=== PATIENT | male | born 1965 | race Caucasian/White ===

== ENCOUNTER 2022-09-11 13:28 | Day surgery (SDC) | payer BC ==
[~2022-09-11] VITALS: Ht 185.4 cm; Wt 110.1 kg
[~2022-09-11 13:28] MED LIST: ATOR1TAB21 PO; CARV25TA PO; DIGO0.123 PO; DILT120C78 PO; ELIQ5TAB PO; ENTR1TAB7 PO; JARD1TAB PO; METF10004 PO; NS 1,000 ML IV ONE; SITA50TAB PO; TORS100T PO
[2022-09-11] MEDS ORDERED: propofoL 200 MG/20 ML VIAL As Ordered ONE ×2 (14:45→15:16)
[2022-09-11] MEDS ORDERED: LIDOCAINE 2% 100MG/5ML SDV (FOR ANES.) As Ordered ONE (14:45)
[2022-09-11] MEDS ORDERED: fentaNYL 100 MCG/2 ML INJECTION As Ordered ONE (14:46)
[2022-09-11 15:50] VITALS: BP 108/65
== END 2022-09-11 16:10 | disposition home or self-care (01) ==
LOC: M OPP 13:28
PROVIDERS: ATTEND Internal Medicine Gastroenterology
DX: Z12.11 Encounter for screening for malignant neoplasm of colon (principal); K64.0 First degree hemorrhoids; K22.89 Other specified disease of esophagus; K31.89 Other diseases of stomach and duodenum; Z79.01 Long term (current) use of anticoagulants; Z79.02 Long term (current) use of antithrombotics/antiplatelets; Z79.84 Long term (current) use of oral hypoglycemic drugs; Z79.899 Other long term (current) drug therapy
CPT/HCPCS: 43239; 45378; 88305; J3010

== ENCOUNTER → 2024-07-29 | Outpatient (CLI) | payer BC ==
[~2024-07-29] MED LIST changes: -NS 1,000 ML IV ONE
[2024-07-29 12:10] LABS: ALBUMIN 3.6 G/DL (3.2-5.2); ALKALINE PHOSPHATASE 99 U/L (40-129); ALT/SGPT 11 U/L (7.0-40); AST/SGOT < 8 U/L (<34); BILIRUBIN,TOTAL < 0.2 MG/DL (0.3-1.2); BLOOD UREA NITROGEN 61 MG/DL (9-23); CARBON DIOXIDE LEVEL 30 MMOL/L (20-31); CHLORIDE LEVEL 99 MMOL/L (98-107); GLOMERULAR FILTRATION RATE 19.2 (>56); GLUCOSE, FASTING 269 MG/DL (60-100); POTASSIUM SERUM 4.4 MMOL/L (3.5-5.1); SODIUM LEVEL 135 MMOL/L (136-145); TOTAL PROTEIN 7.7 G/DL (5.7-8.2)
== END ==
LOC: M LAB 11:07
PROVIDERS: ATTEND Nurse Practitioner Acute Care
DX: I42.0 Dilated cardiomyopathy (principal)

== ENCOUNTER → 2024-11-17 | Outpatient (REF) | payer BC | LOC: M SMT 12:59 | PROVIDERS: ATTEND Urology | DX: R33.9 Retention of urine, unspecified (principal) ==

== ENCOUNTER 2024-11-27 12:49 | Day surgery (SDC) | payer BC ==
[~2024-11-27] VITALS: Ht 185.4 cm; Wt 128.5 kg
[2024-11-27] MEDS ORDERED: LR 1,000 ML IV SCH (12:55)
[2024-11-27] MEDS ORDERED: MIDAZOLAM INJ 2 MG/2 ML VIAL As Ordered ONE (13:16)
[2024-11-27] MEDS ORDERED: LIDOCAINE 2% 100 MG/5 ML SDV (FOR ANES.) As Ordered ONE (13:16)
[2024-11-27] MEDS ORDERED: ONDANSETRON 4MG 2ML VIAL As Ordered ONE (13:17)
[2024-11-27] MEDS ORDERED: KETOROLAC 30 MG/ML 1 ML VIAL As Ordered ONE (13:18)
[2024-11-27] MEDS ORDERED: dexAMETHasone 4 MG/ML 1 ML VIAL As Ordered ONE (13:18)
[2024-11-27] MEDS: CIPROFLOXACIN 400 MG in IV 1 EA IV ONE (13:50)
[2024-11-27] MEDS ORDERED: ACETAMINOPHEN 1000MG/100ML IV BAG As Ordered ONE (14:18)
[2024-11-27] MEDS ORDERED: HYDROmorphone HCL 2 MG/ML 1 ML VIAL As Ordered ONE (14:35)
[2024-11-27] MEDS ORDERED: ONDANSETRON 4MG 2ML VIAL IV PRN (15:20)
[2024-11-27] MEDS ORDERED: PYRI1TAB5 PO (15:30)
[2024-11-27] MEDS ORDERED: OXYB5TAB14 PO (15:30)
[2024-11-27] MEDS ORDERED: CIPR-249 PO (15:30)
[2024-11-27 16:45] VITALS: BP 135/74; TEMP 97; O2SAT 98
== END 2024-11-27 17:24 | disposition home or self-care (01) ==
LOC: M SDC 12:49
PROVIDERS: ATTEND Urology
DX: N40.1 Benign prostatic hyperplasia with lower urinary tract symptoms (principal); R33.8 Other retention of urine; E11.9 Type 2 diabetes mellitus without complications; I10 Essential (primary) hypertension; I48.91 Unspecified atrial fibrillation; E78.00 Pure hypercholesterolemia, unspecified; K76.0 Fatty (change of) liver, not elsewhere classified; G47.30 Sleep apnea, unspecified; Z79.899 Other long term (current) drug therapy; Z79.01 Long term (current) use of anticoagulants; Z95.0 Presence of cardiac pacemaker; Z79.84 Long term (current) use of oral hypoglycemic drugs
CPT/HCPCS: 52601; 88305; J0131; J0744; J1100; J1171; J1885; J2250; J2405; J3010

== ENCOUNTER → 2025-01-09 | Outpatient (REF) | payer BC ==
[~2025-01-09] MED LIST changes: +CIPR-249 PO; +OXYB5TAB14 PO; +PYRI1TAB5 PO
[2025-01-09 17:51] LABS: IRON (FE) 17.0 UG/DL (65-175); PERCENT SATURATION 4.1 % (19.7-50.0)
== END ==
LOC: M LAB REF 17:01
PROVIDERS: ATTEND Internal Medicine Nephrology
DX: N18.9 Chronic kidney disease, unspecified (principal); D63.1 Anemia in chronic kidney disease

== ENCOUNTER 2025-02-04 07:30 | Outpatient (CLI) | payer BC ==
[~2025-02-04] VITALS: Ht 185.4 cm; Wt 127.3 kg
[~2025-02-04 07:30] MED LIST changes: +ALBUTEROL SULFATE 2.5 MG/0.5 ML INH CONCENTRATE NEB SOLN INH PRN; +EPINEPHrine INJ 1 MG/ML 1ML AMP IM PRN; +diphenhydrAMINE 50 MG/ML VIAL IV PRN
[2025-02-04 08:00] VITALS: BP 117/80; O2SAT 97
[2025-02-04] MEDS: IRON SUCROSE 300 MG in NS 250 ML OVER 90 MIN. IV ONE (08:31)
[2025-02-04 10:07] VITALS: BP 90/64; O2SAT 98
== END 2025-02-04 10:20 | disposition home or self-care (01) ==
LOC: M INFU 07:30
PROVIDERS: ATTEND Internal Medicine Nephrology
DX: N18.9 Chronic kidney disease, unspecified (principal); D63.1 Anemia in chronic kidney disease
CPT/HCPCS: 96365; 96366; J1756

== ENCOUNTER 2025-02-11 08:01 | Outpatient (CLI) | payer BC ==
[~2025-02-11] VITALS: Ht 185.4 cm; Wt 130.0 kg
[~2025-02-11 08:01] MED LIST changes: +NS (Normal Saline) 0.9% 1,000 ML IV SCH
[2025-02-11 08:05] VITALS: BP 112/86; O2SAT 97
[2025-02-11] MEDS: IRON SUCROSE 300 MG in NS 250 ML OVER 90 MIN. IV ONE (08:29)
[2025-02-11 10:05] VITALS: BP 117/77; O2SAT 97
== END 2025-02-11 10:15 | disposition home or self-care (01) ==
LOC: M INFU 08:01
PROVIDERS: ATTEND Internal Medicine Nephrology
DX: N18.9 Chronic kidney disease, unspecified (principal); D63.1 Anemia in chronic kidney disease
CPT/HCPCS: 96365; 96366; J1756